=== PATIENT | male | born 1970 | race Asian ===

== ENCOUNTER 2024-05-22 07:00 | Day surgery (SDC) | payer OTHER ==
[~2024-05-22] VITALS: Ht 180.3 cm; Wt 115.7 kg
[2024-05-22] MEDS ORDERED: SIMETHICONE 40 MG/0.6 ML ML ONE (08:33)
[2024-05-22] MEDS ORDERED: MIDAZOLAM HCL 5 MG/5 ML VIAL ONE ×2 (08:33→08:44)
[2024-05-22] MEDS ORDERED: MEPERIDINE 100 MG INJ. 100 MG/ML VIAL ONE (08:33)
[2024-05-22 12:24] VITALS: O2SAT 94
[2024-05-22 12:49] VITALS: BP_SYST 132; PULSE 75; RESP 15
== END 2024-05-22 09:50 | disposition home or self-care (01) ==
LOC: SDS 07:00 → SMU 07:10 → SDS 09:50
PROVIDERS: ATTEND Internal Medicine Gastroenterology
DX: Z12.11 Encounter for screening for malignant neoplasm of colon (principal); K62.1 Rectal polyp; K63.5 Polyp of colon; K64.8 Other hemorrhoids; E11.9 Type 2 diabetes mellitus without complications; E78.5 Hyperlipidemia, unspecified; G47.30 Sleep apnea, unspecified; M19.90 Unspecified osteoarthritis, unspecified site; Z98.890 Other specified postprocedural states; Z79.84 Long term (current) use of oral hypoglycemic drugs; Z79.899 Other long term (current) drug therapy; Z90.5 Acquired absence of kidney
CPT/HCPCS: 45385; 99152; 82948; 88305; 99153; G0378; J2250; J2175